=== PATIENT | female | born 1950 | race Caucasian/White ===

== ENCOUNTER → 2017-11-25 | Outpatient (CLI) | payer MEDICARE ==
[~2017-11-25] MED LIST: ALL300 PO; CHOL400T22 PO; CYCL10TA29 PO; LISI-346 PO; METXR500 PO; NAPR-1043 PO; PRAV10TA45 PO
--- NOTE | 2017-11-25 09:44 | EKG ---
FACILITY: [facility] - [place] PATIENT NAME: MARGRET LUGO : [id number] MR: [id number] V: [id number] EXAM DATE: ORDERING PHYSICIAN: NEERAJ CALDERA TECHNOLOGIST: GABRIELLE Smith Reason : TACHYCARDIA Blood Pressure : / mmHG Vent. Rate : 124 BPM Atrial Rate : 124 BPM P-R Int : 142 ms QRS Dur : 080 ms QT Int : 302 ms P-R-T Axes : 064 053 059 degrees QTc Int : 433 ms Sinus tachycardia Otherwise normal ECG No previous ECGs available Referred By: WERNER Confirmed By:
== END ==
LOC: RESP 09:32
PROVIDERS: ATTEND Family Medicine
DX: R09.02 Hypoxemia (principal); R00.0 Tachycardia, unspecified
CPT/HCPCS: 93005

== ENCOUNTER → 2017-11-30 | Outpatient (CLI) | payer MEDICARE ==
[~2017-11-30] MED LIST changes: +IOPAMIDOL 76% 75 ML INFUS BTL 75 ML ONE; +NS 0.9% 20 ML SDV 40 ML ONE
--- NOTE | 2017-11-30 15:45 | RADIOLOGY IMAGING REPORT ---
FACILITY: [facility] [place] PATIENT NAME: Marilu Barajas : 1950 MR: [id number] V: [id number] EXAM DATE: ORDERING PHYSICIAN: NEERAJ CALDERA TECHNOLOGIST: Location: [facility] [place] Patient: Marilu Barajas : 1950 Visit/Account:[id number] Date of Sevice: 11/30/2017 ADDENDUM #2 The list of patient's prior studies does not include prior CTs of the abdomen and pelvis or chest. T here are prior CTs however available dated 2003 and 2005 demonstrating the large irregular mass with peripheral enhancement in the posterior inferior right lobe the liver. This has remained unchanged w hen compared to those prior studies and likely represents a cavernous hemangioma Report Dictated By: Aspen Hawk MD at 12/01/2017 1:42 PM Report E-Signed By: Aspen Hawk MD at 12/01/2017 1:44 PM ADDENDUM #1 Dose Lowering Technique One of the following dose optimization techniques was utilized in the performance of this exam: Autom ated exposure control; adjustment of the mA and/or kV according to the patient's size; or use of an i terative reconstruction technique. Specific details can be referenced in the facility's radiology C T exam operational policy. Report Dictated By: Aspen Hawk MD at 11/30/2017 4:55 PM Report E-Signed By: Aspen Hawk MD at 11/30/2017 4:55 PM ORIGINAL REPORT CHEST W CONTRAST History: Cough and GERD TECHNIQUE: Contiguous axial images were performed through the chest to the level of the adrenal gla nds following the administration of IV contrast. Coronal and sagittal reformatting was also perform ed. Contrast: 75 mL Isovue-370 COMPARISON STUDIES: none. Lungs / Pleura: Small amount linear scarring anterior right middle lobe and posterior lower lobes. Several small ground glass opacities are present in the left upper lobe. 1.5 cm bleb/bulla posterior aspect of the left lower lobe Mediastinum/nodes: There Is 1.6 x 0.9 cm pretracheal lymph node that appears fatty replaced. There are small pretracheal and AP window lymph nodes. Heart and vessels: negative. Musculoskeletal / Body wall: Moderate spondylotic changes in the thoracic spine Upper abdomen: In the posterior inferior right lobe the liver is an irregular hypoattenuating mass with irregular peripheral enhancement measuring approximately 5.1 x 4.6 x 5.4 cm and is extremely con cerning for neoplasm. 1.8 cm cyst in the lateral segment left lobe of the liver and several other ti ny hypodensities in the liver which are too small to characterize IMPRESSION: There is a small amount of scarring in the right middle lobe and both lower lobes. Several small groundglass opacities in the left upper lobe could be chronic or related to an acute in fectious/inflammatory process Small mediastinal lymph nodes There is a large irregular hypoattenuating mass with irregular peripheral enhancement in the posterio r inferior right lobe of the liver measuring up to 5.4 centers in diameter and is extremely concernin g for neoplasm.. Considerations include primary hepatic neoplasm versus metastatic focus. Report Dictated By: Aspen Hawk MD at 11/30/2017 3:31 PM Report E-Signed By: Aspen Hawk MD at 11/30/2017 3:41 PM WSN:[email or web address]
== END ==
LOC: CT 11-26 03:04
PROVIDERS: ATTEND Family Medicine
DX: R91.8 Other nonspecific abnormal finding of lung field (principal); R59.0 Localized enlarged lymph nodes; K76.89 Other specified diseases of liver
CPT/HCPCS: 71260; J7050; Q9967

== ENCOUNTER 2017-12-02 08:00 | Outpatient (RCR) | payer MEDICARE ==
[~2017-12-02 08:00] MED LIST changes: -IOPAMIDOL 76% 75 ML INFUS BTL 75 ML ONE; -NS 0.9% 20 ML SDV 40 ML ONE
--- NOTE | 2017-12-03 14:27 | RADIOLOGY IMAGING REPORT ---
[place]AC[place] [facility] [place]IENT NAME: Marilu Barajas : 1950 MR: [id number] V: [id number] EXAM DATE: ORDERING PHYSICIAN: NEERAJ CALDERA TECHNOLOGIST: Location: [facility] Patient: Marilu Barajas : 1950 Visit/Account:[id number] Date of Sevice: 12/03/2017 EXAMINATION: Double contrast upper GI 12/03/2017 10:18 AM HISTORY: Cough, GERD COMPARISON: None FLUOROSCOPY TIME: 1.3 minutes DOSE: DAP was 1333.70 uGy/m2 FINDINGS: [employer] Solderer KUB is unremarkable. Initially the patient ingested swallows of thick barium with t he oral pharyngeal area imaged from the frontal and lateral projections. Mild laryngeal penetration was demonstrated without jace aspiration. The hypopharynx is normally and symmetrically distensible . After the ingestion of bicarbonate crystals the patient drank additional thick barium upright followe d by thin barium in the prone LAKE position. There is disordered esophageal peristalsis and tertiary esophageal spasm. No focal esophageal stricture or obstruction. No mass. No esophageal ulceration. Minimal sliding hiatal hernia. Stomach distends well. Rugal folds are not thickened. No gastric mass or ulceration. Duodenal bulb and C-loop are unremarkable. Minimal gastroesophageal reflux was visualized. No substantial additi onal gastroesophageal reflux was provoked despite straining. Patient was returned upright. She was able to ingest a 13 mm barium tablet without difficulty. It b riefly held up in the upper thoracic esophagus but with additional water passed into the stomach with out significant delay. IMPRESSION: 1. Minimal sliding hiatal hernia with mild gastroesophageal reflux noted during the study. 2. Disordered esophageal peristalsis with tertiary spasm. This can be seen with presbyesophagus but may also be exacerbated by reflux irritation. 3. Laryngeal penetration was noted during the study without jace aspiration. With the history of you guzman, is a dedicated speech swallowing study clinically indicated? Report Dictated By: Kj Costa MD at 12/03/2017 2:17 PM Report E-Signed By: Kj Costa MD at 12/03/2017 2:23 PM WSN:[email or web address]
== END 2017-12-03 18:00 | disposition home or self-care (01) ==
LOC: RAD 08:00 → EDSTATUS 14:17 → RAD 12-03 18:00
PROVIDERS: ATTEND Family Medicine
DX: K46.9 Unspecified abdominal hernia without obstruction or gangrene (principal); K22.4 Dyskinesia of esophagus; K21.9 Gastro-esophageal reflux disease without esophagitis
CPT/HCPCS: 74240

== ENCOUNTER → 2018-01-19 | Outpatient (CLI) | payer MEDICARE ==
--- NOTE | 2018-01-19 10:34 | RADIOLOGY IMAGING REPORT ---
[place] [facility] [place]IENT NAME: Marilu Barajas : 1950 MR: [id number] V: [id number] EXAM DATE: ORDERING PHYSICIAN: NEERAJ CALDERA TECHNOLOGIST: Location: [facility] Patient: Marilu Barajas : 1950 Visit/Account:[id number] Date of Sevice: 01/19/2018 Exam type: CHEST PA AND LAT History: Chronic cough x5 months, back pain from fall two weeks ago Comparison: April 05, 2017. Findings: The lungs are free of acute effusions, infiltrates or edema. Cardiac lead is normal in size. The tr achea is in midline. There are moderate spondylotic changes of the thoracic spine. IMPRESSION: 1. No acute cardiopulmonary process is seen Report Dictated By: Aspen Hawk MD at 01/19/2018 10:29 AM Report E-Signed By: Aspen Hawk MD at 01/19/2018 10:31 AM WSN:[email or web address]
== END ==
LOC: RAD 09:43
PROVIDERS: ATTEND Family Medicine
DX: R05 Cough (principal)
CPT/HCPCS: 71046

== ENCOUNTER → 2018-04-15 | Outpatient (CLI) | payer MEDICARE ==
--- NOTE | 2018-04-15 11:27 | RADIOLOGY IMAGING REPORT ---
FACILITY: [facility] PATIENT NAME: MARGRET LUGO : [id number] MR: [id number] V: [id number] EXAM DATE: ORDERING PHYSICIAN: NEERAJ CALDERA TECHNOLOGIST: Miranda Judge PROCEDURE:BILATERAL DIGITAL SCREENING MAMMOGRAM WITH CAD ASSISTED INTERPRETATION & 3D TOMOSYNTHESIS COMPARISON:Prior mammograms 03/23/17, 12/13/15, 01/30/14, 11/22/12, 10/20/11. INDICATIONS:SCREENING FINDINGS: Small to moderate amount of fibroglandular tissue is seen throughout the breasts. The parenchymal pattern has remained stable allowing for difference in mammographic technique & patient positioning. There is an area of postsurgical scaring in the lateral portion of the Right breast. There is no evidence of malignant appearing mass, malignant appearing calcifications or other secondary sign of malignancy in either breast. DIAGNOSTIC CATEGORY 2--BENIGN FINDING. RECOMMENDATIONS: ROUTINE MAMMOGRAM AND CLINICAL EVALUATION. IMPRESSION: BIRADS 2: Benign finding. No significant abnormality is seen. Dictated by: Aspen Hawk M.D. on 04/15/2018 at 9:58 Transcribed by: TANISHA on 04/15/2018 at 10:10 Approved by: Aspen Hawk M.D. on 04/15/2018 at 11:27 [facility]
== END ==
LOC: MAMO 02:11
PROVIDERS: ATTEND Family Medicine
DX: Z12.31 Encounter for screening mammogram for malignant neoplasm of breast (principal)
CPT/HCPCS: 77063; 77067

== ENCOUNTER → 2018-05-04 | Outpatient (CLI) | payer MEDICARE ==
[~2018-05-04] MED LIST changes: +DAPA10TA; +MONT10TA4 PO
--- NOTE | 2018-05-04 14:07 | RADIOLOGY IMAGING REPORT ---
FACILITY: [facility] [place] PATIENT NAME: Marilu Barajas : 1950 MR: [id number] V: [id number] EXAM DATE: ORDERING PHYSICIAN: NEERAJ CALDERA TECHNOLOGIST: Location: [facility] Patient: Marilu Barajas : 1950 Visit/Account:[id number] Date of Sevice: 05/04/2018 ANKLE 3 VIEW MIN RIGHT History: Right ankle pain. Comparison study: None. Findings: There is no fracture or dislocation involving the right ankle. The talar dome and ankle mo rtise are intact. There are mild enthesopathic changes at the site of attachment of the Achilles tendon and plantar apo neurosis upon the calcaneus. IMPRESSION: 1. No fracture. 2. Enthesopathic changes as described above. Report Dictated By: Robson Yoder MD at 05/04/2018 2:02 PM Report E-Signed By: Robson Yoder MD at 05/04/2018 2:03 PM WSN:[id number]
== END ==
LOC: RAD 12:37
PROVIDERS: ATTEND Family Medicine
DX: M25.571 Pain in right ankle and joints of right foot (principal); M25.471 Effusion, right ankle

== ENCOUNTER → 2018-05-11 | Outpatient (CLI) | payer MEDICARE ==
--- NOTE | 2018-05-11 13:28 | RADIOLOGY IMAGING REPORT ---
FACILITY: [facility] PATIENT NAME: Marilu Barajas : 1950 MR: [id number] V: [id number] EXAM DATE: ORDERING PHYSICIAN: KENDELL THORNTON TECHNOLOGIST: [place] [facility] [place] Marilu Barajas : 1950 Visit/Account:[id number] Date of Sevice: 05/11/2018 SHOULDER MIN 2 VIEWS LEFT HISTORY: Chronic shoulder pain, left. ADDITIONAL HISTORY: None. COMPARISON: None FINDINGS: 2 views were obtained of the right shoulder. Glenohumeral joint and subacromial space are normal asim iber. There are mild to moderate degenerative changes in the AC joint with joint space narrowing and osteophytes projecting off the superior and inferior margins of the acromion and clavicle. Coracocl avicular distance is within normal limits. There is no evidence of acute fracture or dislocation. T here is some flattening of the left humeral head laterally on the internal rotation view, query histo ry of dislocation. There are no soft tissue calcifications. Clavicle and visualized ribs are unremarkable. IMPRESSION: 1. No evidence of acute or subacute osseous abnormality in the left shoulder. 2. Mild to moderate degenerative changes in the left AC joint. 3. Query previous history of dislocation, please see above comments. Report Dictated By: Elvie Bustos MD at 05/11/2018 1:22 PM Report E-Signed By: Elvie Bustos MD at 05/11/2018 1:24 PM WSN:[email or web address]
== END ==
LOC: RAD 10:47
PROVIDERS: ATTEND Chiropractor
DX: M24.112 Other articular cartilage disorders, left shoulder (principal)